=== PATIENT | female | born 1960 | race Caucasian/White ===

== ENCOUNTER → 2020-04-10 | Outpatient (CLI) | payer OTHER ==
[~2020-04-10] MED LIST: ASPI81TA26 PO; COQ-100C5 PO; ERYT2GEL TOP; FISH1000 PO; FLON1SPR NARES; HYDR12.55 PO; LOSA100T50 PO; MULTCAP PO; ROSU10TA6 PO; VITA-112 PO; [UNRECOGNIZED DRUG - CODE] EX
== END ==
LOC: M LABSMTC 09:48
PROVIDERS: ATTEND Anesthesiology
DX: Z01.812 Encounter for preprocedural laboratory examination (principal)
CPT/HCPCS: C9803; U0003

== ENCOUNTER 2020-04-15 10:27 | Day surgery (SDC) | payer OTHER ==
[~2020-04-15] VITALS: Ht 157.5 cm; Wt 101.5 kg
[~2020-04-15 10:27] MED LIST changes: -FLON1SPR NARES; +NS 1,000 ML IV ONE
[2020-04-15] MEDS ORDERED: FLON1SPR NARES (10:51)
[2020-04-15] MEDS ORDERED: propofoL 200 MG/20 ML VIAL As Ordered ONE (10:55)
[2020-04-15] MEDS ORDERED: LIDOCAINE 2% 100MG/5ML SDV (FOR ANES.) As Ordered ONE (10:55)
--- NOTE | 2020-04-15 11:20 | ROOR ---
Patient Name: Felicita Amador Procedure Date: 04/15/2020 11:00 AM Date of : 1960 Age: 59 Room: [facility] Gender: Female Note Status: Finalized Procedure: Total Colonoscopy to Cecum + Cold Snare Polypectomy + Hemoclip Indications: Screening for colorectal malignant neoplasm Providers: Cb Lovett MD Referring MD: Jaymie Mejia DO Requesting Provider: Medicines: Monitored Anesthesia Care Complications: No immediate complications. Procedure: Pre-Anesthesia Assessment: - The heart rate, respiratory rate, oxygen saturations, blood pressure, adequacy of pulmonary ventilation, and response to care were monitored throughout the procedure. The Colonoscope was introduced through the anus and advanced to the cecum, identified by appendiceal orifice and ileocecal valve. The colonoscopy was performed without difficulty. The patient tolerated the procedure well. The quality of the bowel preparation was excellent. Findings: The perianal and digital rectal examinations were normal. Non-bleeding internal hemorrhoids were found during retroflexion. The hemorrhoids were small and Grade I (internal hemorrhoids that do not prolapse). A small polyp was found at 50 cm proximal to the anus. The polyp was sessile. The polyp was removed with a cold snare. Resection and retrieval were complete. To prevent bleeding after the polypectomy, one hemostatic clip was successfully placed (MR conditional). There was no bleeding at the end of the procedure. The exam was otherwise without abnormality on direct and retroflexion views. Impression: - Non-bleeding internal hemorrhoids. - One small polyp at 50 cm proximal to the anus, removed with a cold snare. Resected and retrieved. Clip (MR conditional) was placed. - The examination was otherwise normal on direct and retroflexion views. - The exam was otherwise normal to the cecum. Recommendation: - Patient has a contact number available for emergencies. The signs and symptoms of potential delayed complications were discussed with the patient. Return to normal activities tomorrow. Written discharge instructions were provided to the patient. - High fiber diet. - Discharge patient to home. - Continue present medications. - Await pathology results. - Telephone GI clinic for pathology results in 1 week. - Repeat colonoscopy in 5 years for surveillance based on pathology results. - The findings and recommendations were discussed with the patient. Cb Lovett MD Cb Lovett MD 04/15/2020 11:19:45 AM Electronically signed by Cb Lovett MD Number of Addenda: 0 Note Initiated On: 04/15/2020 11:00 AM Estimated Blood Loss: Estimated blood loss: none.
[2020-04-15 11:43] VITALS: BP 130/60
== END 2020-04-15 11:46 | disposition home or self-care (01) ==
LOC: M OPP 10:27
PROVIDERS: ATTEND Internal Medicine Gastroenterology
DX: Z12.11 Encounter for screening for malignant neoplasm of colon (principal); D12.6 Benign neoplasm of colon, unspecified; K64.0 First degree hemorrhoids; I10 Essential (primary) hypertension; Z79.2 Long term (current) use of antibiotics; Z79.82 Long term (current) use of aspirin; Z79.899 Other long term (current) drug therapy; Z88.0 Allergy status to penicillin

== ENCOUNTER → 2023-05-05 | Outpatient (CLI) | payer OTHER ==
[~2023-05-05] MED LIST changes: +CHOL25TA8 PO; +FLON1SPR NARES; +LOSA100T46 PO; -LOSA100T50 PO; -NS 1,000 ML IV ONE; +SODI10LI7 EX; -VITA-112 PO; -[UNRECOGNIZED DRUG - CODE] EX
== END ==
LOC: M RAD 17:06
PROVIDERS: ATTEND Physician Assistant
DX: M22.2X1 Patellofemoral disorders, right knee (principal); M25.461 Effusion, right knee

== ENCOUNTER → 2023-05-06 | Outpatient (CLI) | payer OTHER | LOC: M RAD 09:03 | PROVIDERS: ATTEND Physician Assistant | DX: M25.561 Pain in right knee (principal); R22.41 Localized swelling, mass and lump, right lower limb; M71.21 Synovial cyst of popliteal space [Baker], right knee ==

== ENCOUNTER 2025-06-18 06:59 | Day surgery (SDC) | payer MEDICARE, OTHER ==
[~2025-06-18] VITALS: Ht 157.5 cm; Wt 105.8 kg
[~2025-06-18 06:59] MED LIST changes: +COQ150CH PO; +OMEG350C PO; -ROSU10TA6 PO; +ROSU10TA90 PO; +SIMETHICONE 40MG/0.6ML DROPS 30ML As Ordered ONE; +SODIUM CHLORIDE 0.9% INJ 10 ML SYR IV PRN; +THERTAB52 PO
[2025-06-18 07:55] VITALS: TEMP 97.6
[2025-06-18 08:07] VITALS: BP 122/58; O2SAT 97
== END 2025-06-18 08:19 | disposition home or self-care (01) ==
LOC: M OPP 06:59
PROVIDERS: ATTEND Internal Medicine Gastroenterology
DX: Z12.11 Encounter for screening for malignant neoplasm of colon (principal); K63.5 Polyp of colon; K57.30 Diverticulosis of large intestine without perforation or abscess without bleeding; K64.0 First degree hemorrhoids; Z86.0100 Personal history of colon polyps, unspecified; Z88.0 Allergy status to penicillin; Z79.82 Long term (current) use of aspirin; Z79.51 Long term (current) use of inhaled steroids; Z79.899 Other long term (current) drug therapy